=== PATIENT | male | born 1950 | race Caucasian/White ===

== ENCOUNTER → 2017-01-17 | Outpatient (CLI) | payer MEDICARE, BC ==
[2017-01-17 11:01] LABS: Blood Urea Nitrogen 8 mg/dL (9-20); Non-African American GFR(MDRD) >60 (>60 ml/min/1.73 sqM)
--- NOTE | 2017-01-17 11:52 | CT ---
EXAMINATION TYPE: CT ChestAbdPelvis w con DATE OF EXAM: 01/17/2017 COMPARISON: NONE HISTORY: Pancreatic CA CT DLP: 1859.1 mGycm Automated exposure control for dose reduction was used. TECHNIQUE: Helical acquisition through the abdomen and pelvis was obtained without oral contrast but following the intravenous administration of 100 mL of Omnipaque 350. The data was formatted in the a xial, coronal and sagittal projections. FINDINGS: There is an 8.9 mm nodule in the left lingula, best seen on image 25. There is a 13 mm subp leural nodule adjacent to the dome of the left hemidiaphragm, best seen on image 38. No other parench ymal nodules are seen. There is a Port-A-Cath in place in the right anterior chest wall. Its tip is at the cavoatrial juncti on. There is no significant axillary, mediastinal or hilar adenopathy. There is no pleural or pericardial fluid. The heart is not enlarged. Within the abdomen, the liver is prominent measuring 19 cm. The liver is mildly fatty infiltrated. Th e spleen and gallbladder are normal. Both adrenal glands are normal. There is an extrarenal pelvis on the right. The kidneys are otherwise normal. The pancreatic duct is enlarged measuring up to 6 mm. There is mild fullness in the pancreatic head a nd there is a hypoattenuating 2.4 x 1.7 cm mass adjacent to the pancreatic head. There is no significant retroperitoneal, iliac or inguinal adenopathy. The bladder is unremarkable. There is no significant diverticular change and I do not see radiographic evidence of diverticulitis. The appendix is not visualized. Small bowel loops are normal. There is a small hiatal hernia. There is no free fluid and no free air. There is degenerative disc disease and hypertrophic spondylosis within the spine. There is facet arth ropathy in the lower lumbar spine. No bony destructive lesion is seen. IMPRESSION: 1. SOLITARY LEFT LINGULAR PULMONARY. 2. HEPATOMEGALY AND FATTY INFILTRATION OF THE LIVER. 3. 2.4 X 1.7 CM PANCREATIC MASS WITH ASSOCIATED DILATATION OF THE PANCREATIC DUCT. 4. SMALL HIATAL HERNIA. 5. DEGENERATIVE CHANGES WITHIN THE SPINE.
== END | disposition home or self-care (01) ==
LOC: RADPROMAIN 10:17
PROVIDERS: ATTEND Internal Medicine Hematology & Oncology
DX: K76.0 Fatty (change of) liver, not elsewhere classified (principal); R16.0 Hepatomegaly, not elsewhere classified; K44.9 Diaphragmatic hernia without obstruction or gangrene; M47.9 Spondylosis, unspecified; C25.0 Malignant neoplasm of head of pancreas
CPT/HCPCS: 82565; 84520; 71260; 74177; Q9967; J1642

== ENCOUNTER → 2017-05-06 | Outpatient (CLI) | payer MEDICARE, BC ==
[2017-05-06 13:50] LABS: Blood Urea Nitrogen 16 mg/dL (9-20); Non-African American GFR(MDRD) >60 (>60 ml/min/1.73 sqM)
--- NOTE | 2017-05-07 09:18 | CT ---
EXAMINATION TYPE: CT ChestAbdPelvis w con DATE OF EXAM: 05/06/2017 COMPARISON: CT chest abdomen and pelvis January 17, 2017 and older outside studies HISTORY: Follow up to pancreatic CA observation for possible metastatic disease. CT DLP: 2237 mGycm. Automated Exposure Control for Dose Reduction was Utilized. CONTRAST: CT scan of the thorax, abdomen and pelvis is performed with IV Contrast, patient injected with 100 mL of Omnipaque 300. FINDINGS: LUNGS: There is stable 1.1 cm left basilar lingular nodule on axial image 41. This is unchanged from July 13, 2016. Some peripheral linear scarring in the lingula remains present. Tiny nodularity an terolateral left upper lobe near axial image 26 is stable. No new greater than 5 mm parenchymal nodul e or mass is present bilaterally. No pleural effusion or pneumothorax is seen bilaterally. MEDIASTINUM: There are no greater than 1 cm hilar or mediastinal lymph nodes. No cardiomegaly or pe ricardial effusion is seen. Coronary artery calcification is redemonstrated which is noted marker fo r coronary artery disease. OTHER: There is stable right internal jugular Mediport catheter. LIVER/GB: Liver is diffusely low dense consistent with fatty infiltration. PANCREAS: There is heterogeneous hypoechoic area strongly suspicious for mass at head neck junction o f pancreas measuring 2.7 x 2.6 9 cm on axial image 57 fairly stable in size from prior study at level of celiac trunk. Distal pancreatic atrophy and ductal dilatation is stable measuring up to 6 mm. The re is patent portal vein, SMV, and IMV. Some mild adjacent fat stranding raises concern for mild acut e pancreatitis, correlate clinically. SPLEEN: Tiny splenule anteriorly in splenic hilum is redemonstrated on axial image 56. ADRENALS: No significant abnormality is seen. KIDNEYS: There is persistent prominent right renal pelvis with perhaps mild calyceal dilatation. Ther e is symmetric cortical medullary uptake and excretion from both kidneys noted. Suspect combination o f mild UPJ stricture or stenosis and extrarenal pelvis. BOWEL: Oral contrast reaches level of rectum. There is no suspicious small or large bowel dilatation. GENITAL ORGANS: Some central zone calcifications are seen in normal size prostate gland. LYMPH NODES: No greater than 1cm abdominal or pelvic lymph nodes are appreciated. OSSEOUS STRUCTURES: There is multilevel spurring throughout the thoracolumbar spine. There is marked disc space narrowing with spurring and sclerosis and vacuum disc phenomenon at L5-S1 level. There is grade 1 anterolisthesis of L5 on S1. OTHER: There is fairly moderate calcified atherosclerotic change of aorta extending into pelvic branc h vessels IMPRESSION: 1. Stable mid pancreatic low dense lesion or neoplasm with distal ductal dilatation. New mild surroun ding fat stranding raises concern for acute pancreatitis, clinical and lab correlation advised. 2. No additional significant change from prior study. No new suspicious mass or adenopathy is seen to suggest metastatic disease.
== END | disposition home or self-care (01) ==
LOC: RADPROMAIN 13:05
PROVIDERS: ATTEND Internal Medicine Hematology & Oncology
DX: C25.1 Malignant neoplasm of body of pancreas (principal)
CPT/HCPCS: 82565; 84520; 71260; 74177; Q9967; J1642

== ENCOUNTER → 2017-08-06 | Outpatient (CLI) | payer MEDICARE, BC ==
[2017-08-06 11:18] LABS: Blood Urea Nitrogen 19 mg/dL (9-20)
--- NOTE | 2017-08-06 12:45 | CT ---
EXAMINATION TYPE: CT ChestAbdPelvis w con DATE OF EXAM: 08/06/2017 COMPARISON: 05/06/2017 HISTORY: Pancreatic cancer CT DLP: 1714 mGy. Automated Exposure Control for Dose Reduction was Utilized. CONTRAST: CT scan of the thorax, abdomen and pelvis is performed with IV Contrast, patient injected with 100 ml mL of Omnipaque 300. FINDINGS: LUNGS: There is a stable 1.1 cm left lower lobe pulmonary nodule along the hemidiaphragm on series 4 image 45 unchanged back to July 13, 2016. This is likely benign. Lingular pleural parenchymal sca rring is unchanged. Left upper lobe elongated density on series 4 image 30 now demonstrates central l ucency and is favored to represent chronic atelectasis or mucus plugging rather than a pulmonary nodu le. This is unchanged in size from the prior exam. No new pulmonary nodules, masses or focal consolid ation is seen. MEDIASTINUM: There are no greater than 1 cm hilar or mediastinal lymph nodes. No pericardial effusi on is seen. Right-sided Mediport is redemonstrated. Mild to moderate three-vessel coronary artery ca lcifications are again noted. OTHER: No additional significant abnormality is seen. LIVER/GB: The gallbladder is hydropic measuring 11.8 cm in longitudinal dimension. The common bile du ct is enlarged measuring 8 mm on series 5 image 62. There is diffuse hypoattenuation of the hepatic p arenchyma although this approaches but does not meet criteria for hepatic steatosis. PANCREAS: There is minimal increase in size of the pancreatic neck mass with upstream dilatation of t he pancreatic duct. The pancreatic mass now measures 3.1 x 2.8 cm and previously measured 2.7 x 2.6 c m on the exam of 05/06/2017. There is persistent and interval mild increase in peripancreatic inflamm atory change/desmoplastic reaction of the tumor with no clear fat plane between the tumor margin and lesser curvature of the gastric antrum on series 3 image 58. The tumor also abuts the branch point of the celiac axis. The portal vein is patent. The mass abuts the SMV and patency is difficult to deter mine. SPLEEN: No significant abnormality is seen. Tiny splenule is again seen near the splenic hilum. ADRENALS: No significant abnormality is seen. KIDNEYS: Right extrarenal pelvis is again identified. Ureteropelvic junction stricture is also possib le. Kidneys enhance and excrete symmetrically. BOWEL: No significant abnormality is seen. GENITAL ORGANS: The prostate gland is heterogenous thickened containing central zone calcifications. LYMPH NODES: Peripancreatic adenopathy is similar to the prior with the largest lymph node seen on se eva 3 image 62 measuring 1.3 cm in short axis. 2 smaller surrounding peripancreatic lymph nodes are visualized. OSSEOUS STRUCTURES: Multilevel moderate degenerative changes are seen of the thoracolumbar and lumbos acral spine. Grade 1 anterolisthesis of L5 on S1 is redemonstrated. OTHER: Abdominal aorta is of normal course and caliber with moderate calcific and noncalcific atherom atous plaquing. IMPRESSION: 1. Interval minimal increase in size of the pancreatic neoplasm now measuring 3.1 x 2.8 cm and previo usly measuring 2.7 x 2.6 cm on the exam of 05/06/2017. There is also mild increase in surrounding inf lammatory fat stranding with newly obscured fat plane between the lesser curvature of the gastric ant rum. Pancreatitis as a result of the obstructive pancreatic neoplasm should again be considered. Yaritza pancreatic adenopathy is unchanged. 2. No new visceral or osseous metastasis within the chest, abdomen, or pelvis. 3. The previously seen left basilar 1.1 cm pulmonary nodule is unchanged back to 07/13/2016 and is fa vored to be benign.
== END | disposition home or self-care (01) ==
LOC: RADPROMAIN 10:28
PROVIDERS: ATTEND Internal Medicine Hematology & Oncology
DX: C25.1 Malignant neoplasm of body of pancreas (principal); R91.1 Solitary pulmonary nodule
CPT/HCPCS: 82565; 84520; 71260; 74177; 36415; Q9967

== ENCOUNTER → 2017-09-17 | Outpatient (CLI) | payer MEDICARE, BC ==
--- NOTE | 2017-09-17 12:16 | CT ---
EXAMINATION TYPE: CT ChestAbdPelvis w con DATE OF EXAM: 09/17/2017 COMPARISON: CT 08/06/2017 HISTORY: Pancrease CA, recent bile duct stent placement CT DLP: 2436.1 mGycm Automated exposure control for dose reduction was used. CONTRAST: CT scan of the chest, abdomen and pelvis is performed with Oral Contrast and with IV Contrast, patien t injected with 80 mL of Omnipaque 350. FINDINGS: LUNGS: The lungs are stable, there is no concerning parenchymal mass or nodule identified. Left lowe r lobe smoothly marginated nodule is stable at 15. There is no pleural effusion or pneumothorax seen. The tracheobronchial tree is patent. MEDIASTINUM: There are no greater than 1 cm hilar or mediastinal lymph nodes. No pericardial effusi on is seen. There are coronary artery calcifications. AORTA: Atheromatous changes are present, no evident aneurysm or dissection. OTHER: No additional significant abnormality is seen. LIVER/GB: Pneumobilia is present status post common bile duct stent placement. Gallbladder shows a ai r bile level. PANCREAS: The mass as increased in size at the body measuring approximately 3.8 cm in greatest anteri or posterior dimension by 4 cm in transverse dimension, the head of the pancreas has increased in siz e now measuring 5.1 cm in AP dimension. Local no now measures approximately 2 cm as compared to 13 mm on prior exam at this level. There is local inflammatory change. Distal pancreatic duct is dilated a s on prior. Pancreatic mass shows probable partial encasement of the splenoportal confluence, there i s a stenosis suspected. Soft tissue mass likely involves portions of the duodenum, there is loss of l ocal FAT planes as well as possibly the posterior margin of the antrum of the stomach, proximal duode num. SPLEEN: No significant abnormality is seen. ADRENALS: No significant abnormality is seen. KIDNEYS: Punctate nonobstructive calculus at the midpole the left kidney is stable. REPRODUCTIVE ORGANS: No gross abnormality seen. BOWEL: No significant abnormality is seen. FREE AIR: No Free Air visible. ASCITES: None seen. RETROPERITONEAL ADENOPATHY: No retroperitoneal adenopathy is seen. LYMPH NODES: No greater than 1 cm abdominal or pelvic lymph nodes are appreciated. URINARY BLADDER: No significant abnormality is seen. PELVIC ADENOPATHY: None visualized. OSSEOUS STRUCTURES: No significant abnormality is seen. IMPRESSION: Interval increase in size in patient's pancreatic mass as described, adenopathy. Addition al findings above.
== END | disposition home or self-care (01) ==
LOC: RADPROMAIN 09:52
PROVIDERS: ATTEND Internal Medicine Hematology & Oncology
DX: C25.1 Malignant neoplasm of body of pancreas (principal); N20.0 Calculus of kidney; K86.89 Other specified diseases of pancreas; I70.0 Atherosclerosis of aorta; R91.1 Solitary pulmonary nodule
CPT/HCPCS: 82565; 84520; 71260; 74177; Q9967; J1642

== ENCOUNTER → 2017-12-06 | Outpatient (CLI) | payer MEDICARE, BC ==
[2017-12-06 14:08] LABS: Blood Urea Nitrogen 12 mg/dL (9-20)
--- NOTE | 2017-12-07 11:30 | CT ---
EXAMINATION TYPE: CT ChestAbdPelvis w con DATE OF EXAM: 12/06/2017 COMPARISON: NONE HISTORY: Follow up to pancreatic CA CT DLP: 1879.1 mGycm. Automated Exposure Control for Dose Reduction was Utilized. CONTRAST: CT scan of the thorax, abdomen and pelvis is performed with IV Contrast, patient injected with 125 mL of Isovue 370. FINDINGS: LUNGS: Respiratory artifact slightly limits evaluation for subcentimeter pulmonary nodules. Right upp er lobe scarring is seen in image 52 through 50. Table lingular nodular density extends laterally martin ngates of the pleural surface likely representing scarring. 2 mm lingular pulmonary nodule best seen on coronal image 74 is unchanged from the prior. Left basilar pulmonary nodule measures proximally 1. 4 cm, similar to the prior where this measured 1.5 cm. This was present on the prior exam of 01/17/2017 and demonstrates no interval growth on today's examination no new pulmonary nodules are identified. No focal consolidation. There is no pleural effusion or pneumothorax seen. The tracheobronchial tr ee is patent. MEDIASTINUM: There are no greater than 1 cm hilar or mediastinal lymph nodes. No pericardial effusi on is seen. Moderate coronary calcifications are present. OTHER: Small epiphrenic lymph node is unchanged from the prior. LIVER/GB: New elongated area of hyperattenuation on arterial phase imaging that appears geographic me asured on series 3 image 120 at approximately 6.8 x 3.3 cm and extending cranially to the hepatic dom e. Additional more ill-defined area within the left hepatic lobe measures approximately 1.8 cm on riddhi ge 127. Subcapsular similar density in image 137 is ill-defined as well as another nodular area on im age 137 measuring 1.7 x 2.0 cm and regional area and segment 6 of the liver on image 148 measuring 3. 2 x 6.0 cm. Patchy enhancement is seen within the remainder of the inferior right hepatic lobe. There is known background underlying hepatic steatosis and pneumobilia. Therefore these findings could rel ate to new fatty sparing as they are not seen on portal venous phase and on the arterial phase, or hy pervascular metastasis. MR is recommended for confirmation with in and out of phase imaging as well a s enhanced sequences. PANCREAS: Biliary stent is seen with a fluid level internally. There remains pancreatic body and tail atrophy with pancreatic ductal dilatation. The main primary mass within the pancreatic head with lianet rounding inflammatory change and desmoplastic reaction have decreased in the interim in degree of inf lammatory reaction and size of pancreatic mass. This measures now approximately 2.9 x 2.3 cm and prev iously measured approximately 3.8 x 4 cm. There is extension to the lesser curvature of stomach gastr ic antral mucosa. There is new suspicion for thrombus within superior mesenteric vein on series 3 riddhi ge 147 through 168. This could also be confirmed on MR. SPLEEN: No significant abnormality is seen. Small splenule seen adjacent to the [place] spleen. ADRENALS: No significant abnormality is seen. No nodularity or thickening. KIDNEYS: Punctate nonobstructing left midpole renal calculus is unchanged. Otherwise kidneys are unre markable. BOWEL: No significant abnormality is seen. No dilatation.. Colonic diverticula are present without p ericolonic fat stranding GENITAL ORGANS: Prostate gland is heterogenous containing central zone calcifications. LYMPH NODES: The largest periportal lymph node measures 1.9 cm in short axis, similar to the prior. F ew scattered peripancreatic nonenlarged lymph nodes are seen. OSSEOUS STRUCTURES: Moderate multilevel degenerative changes are seen of the spine. No new suspicious osseous lesions. There is again grade 1 anterolisthesis of L5 on S1. OTHER: Moderate calcific atheromatous changes seen of the abdominal aorta and its branches. IMPRESSION: 1. New multifocal arterial enhancing hepatic lesions that could represent hypervascular metastasis or focal fatty sparing as enhancement does not persist on the portal venous phase. MR with contrast is recommended for confirmation. 2. Suspicion for new superior mesenteric vein thrombus. This could also be confirmed on MR. 3. Overall decreased size of the main pancreatic head mass, stable portacaval adenopathy, stable pneu mobilia, and unchanged positioning of the biliary stent. 4. Long-term stability of the left basilar pulmonary nodule again favored to be benign.
== END | disposition home or self-care (01) ==
LOC: RADPROMAIN 13:20
PROVIDERS: ATTEND Internal Medicine Hematology & Oncology
DX: C25.1 Malignant neoplasm of body of pancreas (principal); R91.1 Solitary pulmonary nodule; K76.89 Other specified diseases of liver
CPT/HCPCS: 82565; 84520; 71260; 74177; 36415; Q9967

== ENCOUNTER → 2018-02-19 | Outpatient (CLI) | payer MEDICARE, BC ==
[2018-02-19 14:28] LABS: Blood Urea Nitrogen 12 mg/dL (9-20)
--- NOTE | 2018-02-20 08:48 | CT ---
EXAMINATION TYPE: CT ChestAbdPelvis w con DATE OF EXAM: 02/19/2018 COMPARISON: CT chest abdomen and pelvis December 06, 2017 and older studies back through outside exam Dece mber 2015 HISTORY: pancreas CA follow up CT DLP: 2077 mGycm. Automated Exposure Control for Dose Reduction was Utilized. CONTRAST: CT scan of the thorax, abdomen and pelvis is performed with oral and with IV Contrast, patient inject ed with 100 mL of Isovue 370. FINDINGS: LUNGS: There is persistent 1.3 cm cm left basilar nodule axial image 39 that has been present since i nitial study July 13, 2016. Anterior to this slightly irregular smaller linear scarring in the li ngula axial image 38 is unchanged from prior exams. No new parenchymal nodules or masses are identifi ed. No pleural effusion or pneumothorax is present. Tracheobronchial tree is patent. MEDIASTINUM: There are no greater than 1 cm hilar or mediastinal lymph nodes. Stable prominent but s ubcentimeter right pericardial lymph node axial image 41. No cardiomegaly or pericardial effusion is seen. There is stable right internal jugular Mediport catheter. There is moderate coronary artery ca lcification which is noted marker for coronary artery disease. OTHER: No additional significant abnormality is seen. LIVER/GB: Liver is heterogeneously hypodense without discrete mass. Exam noted suboptimal as dedicate d hepatic arterial phase imaging is late with filling of portal vein already present. There is interv al removal of metallic internal biliary stent and resolution of pneumobilia. There is persistent mild central extrahepatic biliary dilatation up to 10 mm axial image 56 and mild left-sided central intra hepatic biliary dilatation. PANCREAS: In the central pancreas there is poorly visualized heterogeneous hypodense mass causing abr upt dilatation of the pancreatic duct mid to distal body and tail. Mass is difficult to accurately me asure with some irregular margins measuring 3.4 x 2.2 cm axial image 58 series 3. Some adjacent promi nent but subcentimeter lymph nodes are seen superiorly axial image 50. Mass abuts the posterior wall of the gastric antrum, appears to encase the common hepatic artery axial image 55. There is adjacent enlarged precaval lymph node 2.2 x 1.9 cm axial image 58 redemonstrated slightly diminished in size f rom most recent CT axial image 142 series 3. Some mild ill-defined fluid extending inferiorly is rede monstrated. There is more prominent mass effect on the SMV near confluence with splenic vein which is significantly narrowed near axial image 41 series 7 through 39. No definitive thrombus. SPLEEN: No significant abnormality is seen. ADRENALS: No significant abnormality is seen. KIDNEYS: No significant abnormality is seen. BOWEL: No significant abnormality is seen. GENITAL ORGANS: No gross abnormality seen. LYMPH NODES: No greater than 1cm abdominal or pelvic lymph nodes are appreciated. OSSEOUS STRUCTURES: S-shaped scoliosis is redemonstrated. There is multilevel moderate to severe spur ring and disc space narrowing throughout the visualized thoracolumbar spine. OTHER: No significant additional abnormality is seen. IMPRESSION: Interval removal of biliary stent. Overall stable mild left intrahepatic and hepatic bili aurelia dilatation felt present. Redemonstration of nonobstructing central mid body pancreatic neoplasm d ifficult to accurately measure but felt increased in size from most recent CT. No convincing evidence of metastatic disease to the liver on current study. Adjacent adenopathy redemonstrated. No new meta static disease is seen.
== END | disposition home or self-care (01) ==
LOC: RADPROMAIN 13:20
PROVIDERS: ATTEND Internal Medicine Hematology & Oncology
DX: C25.1 Malignant neoplasm of body of pancreas (principal)
CPT/HCPCS: 82565; 84520; 71260; 74177; J1642; Q9967

== ENCOUNTER → 2018-05-27 | Outpatient (CLI) | payer MEDICARE, BC ==
--- NOTE | 2018-05-28 07:24 | CT ---
EXAMINATION TYPE: CT ChestAbdPelvis w con DATE OF EXAM: 05/27/2018 COMPARISON: 02/19/2018 and 12/06/2017 HISTORY: Pancreatic ca, observe for mets CT DLP: 2157.40 mGycm. Automated Exposure Control for Dose Reduction was Utilized. CONTRAST: CT scan of the thorax, abdomen and pelvis is performed with IV Contrast, patient injected with 80 mL of Isovue 300. FINDINGS: LUNGS: The left basilar well-circumscribed 1.3 cm pulmonary nodule has been present dating back to 2015 and is favored to be benign. However there is a new reticular nodular density at the left lung base with nodules measuring up to 1 mm seen on series 4 image 40 through 43 as well as reticula r nodular opacity in the right lower lobe superior segment on image 28 and 27 and left upper lobe lat eral groundglass opacity in image 16. Tubular endobronchial impaction or scarring is again seen in th e lingula. No new pleural effusion or pneumothorax. Main tracheobronchial tree remains patent. MEDIASTINUM: There are no greater than 1 cm hilar or mediastinal lymph nodes. No pericardial effusi on is seen. There is a right-sided MediPort present. Heart is not enlarged. Small epicardial lymph n ode is present. No pericardial effusion. LIVER/GB: The biliary stent has been removed. There remains mild intrahepatic biliary ductal dilatati on within the left hepatic lobe and mild extrahepatic biliary ductal dilatation. No cholelithiasis. T he liver is diffusely heterogenous enhancement with multiple patchy areas of arterial enhancement wit hin the right hepatic lobe that can be seen best on liver windows on series 3 image 48. 2 mm of hypoa ttenuation are seen within the inferior hepatic right hepatic lobe on image 57. PANCREAS: When measured at a similar level the known pancreatic carcinoma bridging the pancreatic bod y and neck is unchanged measuring approximately 3.4 x 2.2 cm and previously measured approximately 3. 4 x 2.2 cm. There is demonstrating pancreatic atrophy and ductal dilatation. Again there appears to b e encasement of the superior mesenteric vein with a mass abutting the gastric antrum and obscuring th e pancreaticoduodenal groove. The superior mesenteric vein is hypoattenuated concerning for thrombus although there is suboptimal opacification of the venous system. SPLEEN: No significant abnormality is seen. Small splenule is seen adjacent to the [place] spleen. ADRENALS: No significant abnormality is seen. No new nodule. KIDNEYS: There are bilateral extrarenal pelvises sees. Kidneys enhance symmetrically. BOWEL: No dilated large or small bowel. Prominent bowel wall thickness and valvulae conniventes may r elate to the adjacent ascites and BE reactive. Congestive colopathy is also seen along the right mary ann colon. LYMPH NODES: Directly adjacent to the pancreatic head there is redemonstration of an enlarged lymph n ode measuring 2.2 cm in short axis. This previously measured 2.2 cm in short axis on the prior exam. There are multiple suspicious gastrohepatic lymph nodes with the most conspicuous measuring 1.3 cm in short axis on image 55 and appearing to have enlarged in comparison to the prior. Scattered periaort ic and mesenteric nonenlarged lymph nodes are also seen. OSSEOUS STRUCTURES: Redemonstration of an S-shaped scoliotic curvature of the spine. Multilevel degen erative changes are seen. No new suspicious osseous lesion. Grade 1 anterolisthesis of L5 on S1 and m ultilevel vacuum disc phenomenon are redemonstrated. OTHER: There is interval development of small volume abdominopelvic ascites and diffuse mesenteric ed carmen. IMPRESSION: Findings are concerning for progression of disease with new reticular nodular bilateral pulmonary opa cities that could represent metastasis or pneumonitis given their morphology as well as multiple area s of arterial hepatic enhancement again suspicious for metastasis and enlargement of lymph nodes with in the gastrohepatic space. There is also interval development of small volume abdominopelvic ascites . The primary pancreatic mass is unchanged in size. Unenhanced abdominal MRI could further assess the hepatic lesions if clinically indicated.
== END | disposition home or self-care (01) ==
LOC: RADPROMAIN 08:12
PROVIDERS: ATTEND Internal Medicine Hematology & Oncology
DX: C25.1 Malignant neoplasm of body of pancreas (principal); R91.1 Solitary pulmonary nodule; R18.8 Other ascites; J98.4 Other disorders of lung
CPT/HCPCS: 82565; 84520; 71260; 74177; J1642; Q9967